=== PATIENT | male | born 1935 | race Caucasian/White ===

== ENCOUNTER 2017-03-15 09:14 | Inpatient (IN) | payer OTHER ==
[2017-03-14 22:30] VITALS: BP 140/63
[~2017-03-15] VITALS: Ht 175.3 cm; Wt 84.7 kg
[2017-03-15 10:13] LABS: Basophils # (auto) 0 uL; Basophils % (auto) 0.2 % (0.0-2.0); Eosinophils # (auto) 0 uL; Eosinophils % (auto) 0.3 % (0.0-7.0); Hematocrit 41.1 % (41.0-53.0); Hemoglobin 13.7 g/dL (13.5-17.5); Lymphocytes % (auto) 11.5 % (10.0-50.0); Mean Corpuscular Hemoglobin 33.2 pg (28.0-32.0); Mean Corpuscular Hgb Conc. 33.3 g/dL (32.0-36.0); Mean Corpuscular Volume 99.8 fL (80.0-100.0); Mean Platelet Volume 8.1 fL (6.9-10.8); Monocytes # (auto) 0.6 uL; Monocytes % (auto) 6.7 % (0.0-12.0); Neutrophils % (auto) 81.3 % (37.0-80.0); Platelet Count (auto) 197 10^3/uL (140-450); Red Cell Distribution Width 13.3 % (11.8-14.3); White Blood Cell 8.6 10^3/uL (4.4-10.8)
[2017-03-15] MEDS ORDERED: diphenhdrAMINE HCL 50 MG/1 ML VL IV ONE (10:15)
[2017-03-15 10:43] LABS: Albumin 3.5 g/dL (3.4-5.0); Alkaline Phosphatase 78 U/L (45-117); Anion Gap 6 (5-15); Aspartate Aminotransferase 15 U/L (15-37); BUN/Creatinine Ratio 8.3; Bilirubin, Total 0.4 mg/dL (0.2-1.0); Blood Urea Nitrogen 10 mg/dL (7-18); Calcium 8.7 mg/dL (8.5-10.1); Carbon Dioxide 27 mmol/L (21-32); Chloride 105 mmol/L (98-107); GFR African American 75 mL/min; GFR Non-African American 62 mL/min; Glucose 123 mg/dL (74-106); Magnesium 2.1 mg/dL (1.6-2.6); Potassium 3.4 mmol/L (3.5-5.1); Sodium 138 mmol/L (136-145)
[2017-03-15] MEDS ORDERED: ACETAMINOPHEN 500 MG TAB PO ONE (12:30)
[2017-03-15 13:02] LABS: Urine Bilirubin Negative (Negative); Urine Blood Negative /uL (Negative); Urine Color Yellow (Yellow); Urine Glucose Normal (Normal); Urine Ketone Negative (Negative); Urine Nitrite Negative (Negative); Urine RBC <1 /hpf (0 - 3); Urine Urobilinogen Normal (Negative)
[2017-03-15] MEDS ORDERED: POTASSIUM CHL 20 Meq TABLET PO ONE ×2 (13:15→14:30)
[2017-03-15] MEDS ORDERED: MORPHINE SULF INJ 2 MG/ML SYRINGE 1ML IV PRN ×2 (14:30)
[2017-03-15] MEDS ORDERED: ONDANSETRON HCL 4 MG/2 ML VIAL IV PRN (14:30)
[2017-03-15] MEDS ORDERED: FAMOTIDINE 20 MG TAB PO ONE (14:30)
[2017-03-15] MEDS ORDERED: NITROGLYCERIN 0.4 MG SL TAB SL PRN (14:30)
[2017-03-15] MEDS ORDERED: diphenhdrAMINE HCL 50 MG/1 ML VL IV PRN (14:30)
[2017-03-15] MEDS: ASPirin 81 mg TAB PO SCH (14:39)
[2017-03-15] MEDS: SODIUM CHLORIDE 0.9% 1,000 ML IV SCH (14:40)
[2017-03-15] MEDS: TAMSULOSIN HYDROCHLORIDE 0.4 MG CAP PO SCH (18:54)
[2017-03-15] MEDS: DESMOPRESSIN ACET 0.01% 5ML NASAL SPRY SCH (22:00)
[2017-03-15 22:30] VITALS: BP 140/63
[2017-03-15] MEDS: FAMOTIDINE 20 MG TAB PO SCH (22:57)
[2017-03-15] MEDS ORDERED: ENOXAPARIN SOD 60 MG/0.6 ML SYRINGE SC ONE (23:15)
[2017-03-15] MEDS ORDERED: MORPHINE SULF INJ 2 MG/ML SYRINGE 1ML IV ONE (23:15)
[2017-03-15] MEDS ORDERED: ONDANSETRON HCL 4 MG/2 ML VIAL IV ONE (23:15)
[2017-03-16] MEDS ORDERED: PANT40TA2 PO (04:53)
[2017-03-16] MEDS ORDERED: ASPI81TA27 PO (04:53)
[2017-03-16] MEDS ORDERED: DESM0.1T2 PO (04:53)
[2017-03-16] MEDS ORDERED: MAGN400T5 PO (04:53)
[2017-03-16] MEDS ORDERED: CARV3.1240 PO (04:53)
[2017-03-16] MEDS ORDERED: ERGO2000 PO (04:53)
[2017-03-16] MEDS ORDERED: HYDR-4072 PO (04:53)
[2017-03-16 05:19] VITALS: BP 131/56
[2017-03-16 05:21] LABS: Basophils # (auto) 0 uL; Basophils % (auto) 0.1 % (0.0-2.0); Eosinophils # (auto) 0 uL; Eosinophils % (auto) 0.1 % (0.0-7.0); Hematocrit 35.1 % (41.0-53.0); Hemoglobin 11.9 g/dL (13.5-17.5); Lymphocytes % (auto) 10.3 % (10.0-50.0); Mean Corpuscular Hemoglobin 33.6 pg (28.0-32.0); Mean Corpuscular Volume 98.9 fL (80.0-100.0); Mean Platelet Volume 7.9 fL (6.9-10.8); Monocytes # (auto) 0.6 uL; Monocytes % (auto) 6.4 % (0.0-12.0); Neutrophils # (auto) 8.1 uL; Neutrophils % (auto) 83.1 % (37.0-80.0); Platelet Count (auto) 169 10^3/uL (140-450); Red Cell Distribution Width 13.1 % (11.8-14.3); White Blood Cell 9.8 10^3/uL (4.4-10.8)
[2017-03-16] MEDS: HYDROcodone-ACET 10/325MG TAB PO PRN ×2 (05:32→20:49)
[2017-03-16 05:36] LABS: BUN/Creatinine Ratio 11.8; Calcium 8.2 mg/dL (8.5-10.1); Potassium 3.8 mmol/L (3.5-5.1)
[2017-03-16] MEDS: SODIUM CHLORIDE 0.9% 1,000 ML IV SCH (07:10)
[2017-03-16 08:35] VITALS: BP 129/57
[2017-03-16] MEDS: ASPirin 81 mg TAB PO SCH (08:55)
[2017-03-16] MEDS: DESMOPRESSIN ACET 0.01% 5ML NASAL SPRY SCH (08:56)
[2017-03-16] MEDS: FAMOTIDINE 20 MG TAB PO SCH ×2 (08:56→21:41)
[2017-03-16] MEDS ORDERED: diphenhdrAMINE HCL 50 MG/1 ML VL IV ONE (11:00)
[2017-03-16 13:02] VITALS: BP 130/60
[2017-03-16] MEDS ORDERED: methylPREDNISolone SOD SUCC 125 MG/2 ML VL IV ONE (13:45)
[2017-03-16 16:18] VITALS: BP 146/68
[2017-03-16] MEDS: TAMSULOSIN HYDROCHLORIDE 0.4 MG CAP PO SCH (17:42)
[2017-03-16 20:00] VITALS: BP 137/80
[2017-03-16] MEDS: methylPREDNISolone SOD SUCC 125 MG/2 ML VL IV SCH (21:42)
[2017-03-16 22:00] VITALS: BP 137/80
[2017-03-17] MEDS: DESMOPRESSIN 0.1 MG PO SCH ×2 (02:03→14:18)
[2017-03-17 05:42] VITALS: BP 142/78
[2017-03-17] MEDS: methylPREDNISolone SOD SUCC 125 MG/2 ML VL IV SCH ×2 (06:04→14:27)
[2017-03-17] MEDS: SODIUM CHLORIDE 0.9% 1,000 ML IV SCH (06:30)
[2017-03-17] MEDS: diphenhdrAMINE HCL 50 MG/1 ML VL IV PRN ×2 (08:17→12:54)
[2017-03-17] MEDS: ASPirin 81 mg TAB PO SCH (08:18)
[2017-03-17] MEDS: FAMOTIDINE 20 MG TAB PO SCH (08:18)
[2017-03-17 09:14] VITALS: BP 144/65
[2017-03-17 13:00] VITALS: BP 113/86
== END 2017-03-17 15:46 | disposition home or self-care (01) | DRG 312 ==
LOC: ER 09:14 → TELE 09:15 → TELE-CENTR 22:20
PROVIDERS: ADMIT Internal Medicine; ATTEND Internal Medicine Geriatric Medicine
PROC: 5A12012 Performance of Cardiac Output, Single, Manual (ICD-10-PCS; principal; 2017-03-15)
DX: R55 Syncope and collapse (principal); E23.2 Diabetes insipidus; Z95.1 Presence of aortocoronary bypass graft; T42.6X5A Adverse effect of other antiepileptic and sedative-hypnotic drugs, initial encounter; N40.0 Benign prostatic hyperplasia without lower urinary tract symptoms; I25.10 Atherosclerotic heart disease of native coronary artery without angina pectoris; R07.89 Other chest pain; R21 Rash and other nonspecific skin eruption; Z88.0 Allergy status to penicillin; Z88.8 Allergy status to other drugs, medicaments and biological substances; Y92.89 Other specified places as the place of occurrence of the external cause
CPT/HCPCS: 36415; 70450; 71010; 80048; 80053; 81001; 83735; 84484; 85025; 93005; 93306; 93970; 96361; 96374

== ENCOUNTER 2023-06-30 14:29 | Emergency (ER) | payer OTHER ==
[~2023-06-30] VITALS: Ht 175.3 cm; Wt 84.0 kg
[~2023-06-30 14:29] MED LIST: ASPI-543 PO; CARV3.1240 PO; DESM0.1T13 PO; ERGO2000 PO; HYDR-4072 PO; MAGN400T40 PO; PANT40TA2 PO
[2023-06-30 15:49] VITALS: BP 185/78; PULSE 7; RESP 18; TEMP 98.1; O2SAT 96
[2023-06-30] MEDS ORDERED: CEPH500C PO (16:18)
== END 2023-06-30 16:28 | disposition home or self-care (01) ==
LOC: EDBD 14:29 → ER 14:29
DX: S51.011A Laceration without foreign body of right elbow, initial encounter (principal); S16.1XXA Strain of muscle, fascia and tendon at neck level, initial encounter; I10 Essential (primary) hypertension; E11.9 Type 2 diabetes mellitus without complications; Z88.0 Allergy status to penicillin; Z88.8 Allergy status to other drugs, medicaments and biological substances; V03.99XA Pedestrian with other conveyance injured in collision with car, pick-up truck or van, unspecified whether traffic or nontraffic accident, initial encounter; Y93.01 Activity, walking, marching and hiking; Y92.89 Other specified places as the place of occurrence of the external cause; Y99.8 Other external cause status
CPT/HCPCS: 72125; 73080; 93005

== ENCOUNTER 2023-10-04 07:56 | Emergency (ER) | payer OTHER ==
[~2023-10-04] VITALS: Ht 172.7 cm; Wt 86.5 kg
[~2023-10-04 07:56] MED LIST changes: +CEPH500C PO
[2023-10-04 08:23] LABS: Basophils # (auto) 0 10 ^3/uL (0-0.2); Basophils % (auto) 0.9 % (0.0-2.0); Eosinophils # (auto) 0.3 10 ^3/uL (0-0.8); Eosinophils % (auto) 6.1 % (0.0-7.0); Hematocrit 37.6 % (41.0-53.0); Hemoglobin 12.6 g/dL (13.5-17.5); Lymphocytes # (auto) 1.2 10 ^3/uL (0.4-5.4); Lymphocytes % (auto) 25.4 % (10.0-50.0); Mean Corpuscular Hemoglobin 32.8 pg (28.0-32.0); Mean Corpuscular Hgb Conc. 33.4 g/dL (32.0-36.0); Monocytes # (auto) 0.6 10 ^3/uL (0-1.3); Monocytes % (auto) 12.4 % (0.0-12.0); Neutrophils # (auto) 2.6 10 ^3/uL (1.6-8.6); Neutrophils % (auto) 55.2 % (37.0-80.0); Nucleated Red Blood Cells % 0.1 %; Red Blood Cells 3.83 10^6/uL (4.5-5.90); Red Cell Distribution Width 13.5 % (11.8-14.3); White Blood Cell 4.8 10^3/uL (4.4-10.8)
[2023-10-04 08:42] LABS: Alanine Aminotransferase 22 U/L (7-40); Alkaline Phosphatase 76 U/L (46-116); Anion Gap 4 (5-15); Aspartate Aminotransferase 22 U/L (13-40); BUN/Creatinine Ratio 7.4 (10.0-20.0); Blood Urea Nitrogen 8 mg/dL (9-23); Calcium 9.4 mg/dL (8.7-10.4); Carbon Dioxide 27 mmol/L (20-30); Chloride 104 mmol/L (98-107); Glucose 97 mg/dL (74-106); Potassium 3.8 mmol/L (3.5-5.1); Sodium 135 mmol/L (136-145)
[2023-10-04 08:43] LABS: Bilirubin, Total 0.4 mg/dL (0.2-1.0); Total Protein 6.6 g/dL (5.7-8.2)
[2023-10-04] MEDS: ASPirin 81 mg TAB PO ONE (10:53)
[2023-10-04 14:14] LABS: Urine Bacteria None Seen /hpf (None Seen)
[2023-10-04 14:20] VITALS: BP 142/61; PULSE 63; RESP 18; TEMP 97.9; O2SAT 96
[2023-10-04 14:36] LABS: Urine Blood Negative /uL (Negative); Urine Clarity Clear (Clear); Urine Protein, UAD Negative (Negative); Urine Specific Gravity 1.005 (1.001-1.035); Urine Urobilinogen Normal (Negative); Urine WBC <1 /hpf (0 - 3)
[2023-10-04 14:38] LABS: Urine Color Straw (Yellow)
== END 2023-10-04 14:21 | disposition home or self-care (01) ==
LOC: ER 07:56
DX: I16.0 Hypertensive urgency (principal); I11.0 Hypertensive heart disease with heart failure; I50.9 Heart failure, unspecified; R07.9 Chest pain, unspecified; Z88.6 Allergy status to analgesic agent; Z88.0 Allergy status to penicillin
CPT/HCPCS: 36415; 71045; 80053; 81001; 83735; 84484; 85025; 93005

== ENCOUNTER 2025-06-19 03:20 | Emergency (ER) | payer OTHER ==
[~2025-06-19] VITALS: Ht 175.3 cm; Wt 84.0 kg
--- NOTE | 2025-06-19 03:46 | ECG ---
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
[2025-06-19 03:48] LABS: Hematocrit 36.3 % (41.0-53.0); Hemoglobin 12.5 g/dL (13.5-17.5); Mean Corpuscular Hemoglobin 33.2 pg (28.0-32.0); Mean Corpuscular Volume 96.8 fL (80.0-100.0); Nucleated Red Blood Cells % 0.0 %
--- NOTE | 2025-06-19 03:56 | ED.PDOC ---
HPI Comments 89 year old male with PMHx of HTN presents to the ED for cc of chest pain onset this morning 06/19/2025 while sleeping. Pt reports upper back pain that radiates to the neck that first began 2 weeks ago. Pt has been treating Sx with ibuprofen, in contradiction with Apron Man's recommendations. Pt also took 3 nitroglycerin and 3 clarbodol due to onset of chest pain symptoms but has found no relief. Pt has a PSHx of triple bypass surgery in 2009. Pt denies associated symptoms of dizziness, headache, D/V/N at this time. No other associated symptoms, modifiers, recent injuries or sick contacts present at this time. Chief Complaint: Chest Pain Time Seen by MD: 03:55 Primary Care Provider: JACINTA KARIMI Reviewed Notes: Nurses Notes, Medications, Allergies Allergies: Coded Allergies: Gabapentin (Verified Allergy, Unknown, 03/15/17) Penicillins (Verified Allergy, Unknown, 03/15/17) Pregabalin (Verified Allergy, Unknown, 06/30/23) Uncoded Allergies: VACCINES (Allergy, Severe, 10/04/23) Home Meds Active Scripts Cephalexin Monohydrate (Cephalexin) 500 Mg Cap, 1 CAP PO TID, #30 CAP Prov:FELIX FAY 06/30/23 Reported Medications Ergocalciferol (VITAMIN D2) 2,000 Unit Tab, 2000 UNIT PO DAILY, TAB 03/16/17 Hydrocodone-Acetaminophen (Hydrocodone/Acetaminophen 10-325 mg) 1 Tab Tab, 1 TAB PO Q8HR PRN for MODERATE PAIN, TAB 03/16/17 Desmopressin Acetate (Desmopressin Acetate) 0.1 Mg Tab, 0.1 MG PO BID, TAB 03/16/17 Carvedilol (Carvedilol) 3.125 Mg Tab, 3.125 MG PO DAILY for 30 Days, MG 03/16/17 Aspirin (Aspir-Low) 81 Mg Tab, 81 MG PO DAILY for 30 Days, MG 03/16/17 Magnesium Oxide (MAGNESIUM OXIDE) 400 Mg Tab, 2 TAB PO BID, #60 TAB 5 Refills 03/16/17 Pantoprazole Sodium Sesquihydr (Protonix) 40 Mg Tab, 20 MG PO DAILY, #30 TAB 03/16/17 Information Source: Patient, Spouse Mode of Arrival: Ambulatory Severity: Moderate Timing: Hours Duration: Since onset Prehospital treatment: Pain Meds Cardiac Risk Factors: None PE Risk Factors: None Modifying Factors: Nothing Past Medical History PAST MEDICAL HISTORY: CHF, HTN Surgical History: Tonsillectomy Family History Family History: Reviewed,noncontributory to illness Social History Smoker: Non-Smoker Alcohol: Denies ETOH Use Drugs: Denies Drug Use Lives In: Home Constitutional: denies: chills, diaphoresis, fatigue, fever, malaise, sweats, weakness, others EENTM: denies: blurred vision, double vision, ear bleeding, ear discharge, ear drainage, ear pain, ear ringing, eye pain, eye redness, hearing loss, mouth pain, mouth swelling, nasal discharge, nose bleeding, nose congestion, nose pain, photophobia, tearing, throat pain, throat swelling, voice changes, others Respiratory: denies: cough, hemoptysis, orthopnea, SOB at rest, shortness of breath, SOB with excertion, stridor, wheezing, others Cardiovascular: reports: chest pain; denies: dizzy spells, diaphoresis, Dyspnea on exertion, edema, irregular heart beat, left arm pain, lightheadedness, palpitations, PND, syncope, others Gastrointestinal: denies: abdomen distended, abdominal pain, blood streaked bowels, constipated, diarrhea, dysphagia, difficulty swallowing, hematemesis, melena, nausea, poor appetite, poor fluid intake, rectal bleeding, rectal pain, vomiting, others Genitourinary: denies: burning, dysuria, flank pain, frequency, hematuria, incontinence, penile discharge, penile sore, pain, testicle pain, testicle swelling, urgency, others Neurological: denies: dizziness, fainting, headache, left sided numbness, left sided weakness, numbness, paresthesia, pre-existing deficit, right sided numbness, right sided weakness, seizure, speech problems, tingling, tremors, weakness, others Musculoskeletal: denies: back pain, gout, joint pain, joint swelling, muscle pain, muscle stiffness, neck pain, others Integumetry: denies: bruises, change in color, change in hair/nails, dryness, laceration, lesions, lumps, rash, wounds, others Allergic/Immunocompromised: denies: Difficulty Healing, Frequent Infections, Hives, Itching, others Hematologic/Lymphatic: denies: anemia, blood clots, easy bleeding, easy bruising, swollen glands, others Endocrine: denies: excessive hunger, excessive sweating, excessive thirst, excessive urination, flushing, intolerance to cold, intolerance to heat, unexplained weight gain, unexplained weight loss, others Psychiatric: denies: anxiety, bipolar disorder, depression, hopeless, panic disorder, schizophrenia, sleepless, suicidal, others All Other Systems: Reviewed and Negative Physical Exam General Appearance: No Apparent Distress, Normal HEENT: Normal ENT Inspection, Pharynx Normal, TMs Normal Neck: Full Range of Motion, Non-Tender, Normal, Normal Inspection Respiratory: Chest Non-Tender, Lungs Clear, No Accessory Muscle Use, No R espiratory Distress, Normal Breath Sounds Cardiovascular: No Edema, No JVD, No Murmur, No Gallop, Normal Peripheral Pulses, Regular Rate/Rhythm Breast Exam: Deferred Gastrointestinal: No Organomegaly, Non Tender, No Pulsatile Mass, Normal Bowel Sounds, Soft Genitalia: Deferred Pelvic: Deferred Rectal: Deferred Extremities: No calf tenderness, Normal capillary refill, Normal inspection, Normal range of motion, Non-tender, No pedal edema Musculoskeletal : Apperance: Normal Neurologic: Alert, 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 Was a procedure done?: No CP Differential Dx Differential Diagnosis: A-fib X-Ray, Labs, Meds, VS Vital Signs Date Time Temp Pulse Resp B/P (MAP) Pulse Ox O2 Delivery O2 Flow Rate FiO2 06/19/25 04:00 93 Room Air* 0 21 06/19/25 04:00 60 17 124/62 (82) 93 06/19/25 03:26 62 06/19/25 03:22 98.3 55 16 135/50 91 98.3 Lab Test 06/19/25 03:33 Range/Units White Blood Count 8.9 4.4-10.8 10^3/uL Red Blood Count 3.76 L 4.5-5.90 10^6/uL Hemoglobin 12.5 L 13.5-17.5 g/dL Hematocrit 36.3 L 41.0-53.0 % Mean Corpuscular Volume 96.8 80.0-100.0 fL Mean Corpuscular Hemoglobin 33.2 H 28.0-32.0 pg Mean Corpuscular Hemoglobin Concent 34.3 32.0-36.0 g/dL Red Cell Distribution Width 12.5 11.8-14.3 % Platelet Count 240 140-450 10^3/uL Mean Platelet Volume 7.4 6.9-10.8 fL Neutrophils (%) (Auto) 71.6 37.0-80.0 % Lymphocytes (%) (Auto) 13.2 10.0-50.0 % Monocytes (%) (Auto) 10.3 0.0-12.0 % Eosinophils (%) (Auto) 4.0 0.0-7.0 % Basophils (%) (Auto) 0.9 0.0-2.0 % Neutrophils # (Auto) 6.4 1.6-8.6 10 ^3/uL Lymphocytes # (Auto) 1.2 0.4-5.4 10 ^3/uL Monocytes # (Auto) 0.9 0-1.3 10 ^3/uL Eosinophils # (Auto) 0.4 0-0.8 10 ^3/uL Basophils # (Auto) 0.1 0-0.2 10 ^3/uL Nucleated Red Blood Cells 0.0 % Prothrombin Time Pending Prothrombin Time INR Pending Activated Partial Thromboplast Time Pending Sodium Level 131 L 136-145 mmol/L Potassium Level 4.1 3.5-5.1 mmol/L Chloride Level 98 98-107 mmol/L Carbon Dioxide Level 27 20-31 mmol/L Anion Gap 6 5-15 Blood Urea Nitrogen 10 9-23 mg/dL Creatinine 1.02 0.700-1.30 mg/dL Glomerular Filtration Rate Calc 71 >90 mL/min BUN/Creatinine Ratio 9.8 L 10.0-20.0 Serum Glucose 110 H 74-106 mg/dL Calcium Level 9.3 8.7-10.4 mg/dL Troponin I High Sensitivity 9 </=54 ng/L X-Ray, Labs, Meds, VS Comment [facility] [id number] [place] [id number] Ph: [phone] DIAGNOSTIC IMAGING Diagnostic Imaging Report : [id number] Signed PATIENT: ANDRZEJ FERRARO JACCT: [id number] UNIT: [id number] : 1935 LOC: ER ROOM / BED: / AGE / SEX: 89 / M ADM STATUS: REG ER SERVICE 0 ORDERING PHYSICIAN: ROBBIE VERDUZCO MD PROCEDURE(s): CXRP - CHEST PORTABLE REASON: CHEST PAIN ORDER NUMBER(s): [id number], ACCESSION NUMBER(s): [id number] CHEST RADIOGRAPH INDICATION: CHEST PAIN TECHNIQUE: Single frontal view of the chest was obtained COMPARISON: XY CHEST PORTABLE on DOS: 10/04/23 FINDINGS: Lines and Tubes: None Lungs: Left basilar opacity. Right lung is clear. Pleura: No effusion. No pneumothorax. Cardiomediastinal contours: Magnified by portable supine technique. Bones: No acute osseous abnormality. Status post median sternotomy. IMPRESSION: 1. Left basilar opacity which may reflect atelectasis versus pneumonia. ATED BY: ELISHA RODRÍGUEZ MD DICTATED DATE/TIME: 06/19/25400 SIGNED BY: ELISHA RODRÍGUEZ MD SIGNED DATE/TIME: 06/19/25400 CC: Time of 1ST Reevaluation: 04:25 Reevaluation 1ST: Unchanged Patient Education/Counseling: Diagnosis, Treatment, Need For Follow Up Family Education/Counseling: Diagnosis, Treatment, Need For Follow Up SEPSIS Sepsis Screen Date sepsis recognized/suspect: Jun 19, 2025 Time Sepsis recognized/suspect: 325 Recent Procedure: No On Antibiotic Therapy: No Respiratory Rate >20: No Heart Rate >90: No Temp<36 C (96.8 F) or >38.3 C: No SBP <90 or MAP <65 mmHG: No New Acute Mental Status Change: No Is the patient on CPAP, BIPAP,: No Physician Orders Chest Portable (06/19/25 03:21) Urinalysis (06/19/25 03:21) Troponin-I Hs (06/19/25 04:21) Troponin-I Hs (06/19/25 06:21) Electrocardigram (06/19/25 06:21) PTPTT (06/19/25 03:46) Vital Signs Date Time Temp Pulse Resp B/P (MAP) Pulse Ox O2 Delivery O2 Flow Rate FiO2 06/19/25 04:00 93 Room Air* 0 21 06/19/25 04:00 60 17 124/62 (82) 93 06/19/25 03:26 62 06/19/25 03:22 98.3 55 16 135/50 91 98.3 Laboratory Tests Test 06/19/25 03:33 White Blood Count 8.9 10^3/uL (4.4-10.8) Departure 1 Departure Time of Disposition: 04:38 Impression: Primary Impression: CAD (coronary artery disease) Additional Impression: Acute coronary syndrome Disposition: 09 ADMITTED INPATIENT Admit to: Tele Condition: Guarded Comments 89-year-old male with known coronary artery disease had triple bypass about 15 years ago now with substernal suspicious chest pain. His initial troponin is normal. Patient took aspirin prior to arrival. He is now chest pain-free. Patient will need admission for supportive care and further cardiac workup Critical Care Note Critical Care Time?: Yes (35 min-critical care time only) Critical care comment: Total critical care time: Approximately 36 minutes Due to a high probability of clinically significant, life threatening deterioration, the patient required my highest level of preparedness to intervene emergently and I personally spent this critical care time directly and personally managing the patient. This critical care time included obtaining a history; examining the patient; pulse oximetry; ordering and review of studies; arranging urgent treatment with development of a management plan; evaluation of patient's response to treatment; frequent reassessment; and, discussions with ot her providers. This critical care time was performed to assess and manage the high probability of imminent, life-threatening deterioration that could result in multi-organ failure. It was exclusive of separately billable procedures and treating other patients. Stability Stability form required: No Heart Score Heart Score: Heart Score Response (Comments) Value History Moderate Suspicious 1 EKG N/A 0 Age >65 2 Risk Factors >3 or Hx ASHD 2 Troponin Normal limit 0 Total 5 I personally scribed for ROBBIE VERDUZCO MD ([email or web address]) on 06/19/25 at 03:56. Electronically submitted by Clarisa Winslow ([facility]). I personally scribed for ROBBIE VERDUZCO MD ([email or web address]) on 06/19/25 at 04:12. Electronically submitted by Clarisa Winslow ([email or web address]). I personally scribed for ROBBIE VERDUZCO MD ([email or web address]) on 06/19/25 at 04:37. Electronically submitted by Clarisa Winslow ([email or web address]). ROBBIE VERDUZCO MD Jun 19, 2025 03:56
[2025-06-19 04:00] VITALS: O2SAT 93
[2025-06-19 04:02] LABS: Potassium 4.1 mmol/L (3.5-5.1)
[2025-06-19 04:03] LABS: Anion Gap 6 (5-15); Calcium 9.3 mg/dL (8.7-10.4); Carbon Dioxide 27 mmol/L (20-31)
[2025-06-19 04:04] LABS: Chloride 98 mmol/L (98-107); Sodium 131 mmol/L (136-145)
--- NOTE | 2025-06-19 04:04 | DVH ---
CHEST RADIOGRAPH INDICATION: CHEST PAIN TECHNIQUE: Single frontal view of the chest was obtained COMPARISON: XY CHEST PORTABLE on DOS: 10/04/23 FINDINGS: Lines and Tubes: None Lungs: Left basilar opacity. Right lung is clear. Pleura: No effusion. No pneumothorax. Cardiomediastinal contours: Magnified by portable supine technique. Bones: No acute osseous abnormality. Status post median sternotomy. IMPRESSION: 1. Left basilar opacity which may reflect atelectasis versus pneumonia.
[2025-06-19 04:08] LABS: BUN/Creatinine Ratio 9.8 (10.0-20.0); Blood Urea Nitrogen 10 mg/dL (9-23); Glucose 110 mg/dL (74-106)
--- NOTE | 2025-06-19 04:33 | ECG ---
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
[2025-06-19 04:51] LABS: INR 0.97 (0.9-1.15); Partial Thromboplastin Time 33.3 SEC (24.5-34.5); Prothrombin Time 10.3 sec (9.3-11.8)
--- NOTE | 2025-06-19 06:38 | ECG ---
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
[2025-06-19 07:41] VITALS: BP 141/87; PULSE 69; RESP 18; TEMP 97.8; O2SAT 95
[2025-06-19 08:38] LABS: Urine Protein, UAD Negative (Negative)
== END 2025-06-19 08:27 | disposition left against medical advice (07) ==
LOC: ER 03:20
DX: I25.10 Atherosclerotic heart disease of native coronary artery without angina pectoris (principal); I24.9 Acute ischemic heart disease, unspecified; I11.0 Hypertensive heart disease with heart failure; I50.9 Heart failure, unspecified; Z79.82 Long term (current) use of aspirin; Z79.899 Other long term (current) drug therapy; Z90.89 Acquired absence of other organs; Z88.0 Allergy status to penicillin; Z88.8 Allergy status to other drugs, medicaments and biological substances
CPT/HCPCS: 36415; 71045; 80048; 81001; 84484; 85025; 85610; 85730; 93005; 99291